=== PATIENT | male | born 1995 | race Caucasian/White ===

== ENCOUNTER 2019-05-14 17:44 | Emergency (ER) | payer BC ==
[2019-05-14 17:56] VITALS: BP 141/86
--- NOTE | 2019-05-14 18:12 | UC ---
Cardiac HPI - HPI Summary HPI Summary: Pt presents with c/o mid sternal, chest pain that began yesterday that began yesterday. Pt states pain has worsened in the last 24 hours and now is more right side of chest. Pt has family hx of grandparents with cardiac arrest at age 40 and 55. Pt is obese. Pt staes symptoms worsen with exertion. - History of Current Complaint Chief Complaint: UCChestPain Stated Complaint: CHEST PAIN Hx Obtained From: Patient Onset/Duration: Gradual Onset, Lasting Days, Still Present, Worse Since - onset Timing: Constant Initial Severity: Mild Current Severity: Moderate Pain Intensity: 5 Chest Pain Location: Mid Sternal, Right Anterior Character: Irregular, Tightness, Heaviness Aggravating Factor(s): Exertion, Position, Movement Alleviating Factor(s): Nothing Associated Signs & Symptoms: Positive: Chest Pain - Risk Factors Pulmonary Embolism Risk Factors: Negative Cardiac Risk Factors: Negative Atrial Fibrillation: Negative TAD Risk Factors: Negative AMI/ACS Risk Factors: Obesity, Family History - Allergy/Home Medications Allergies/Adverse Reactions: Allergies Allergy/AdvReac Type Severity Reaction Status Date / Time amphetamine [From Adderall] Allergy Severe Agitation Verified 05/14/19 17:59 dextroamphetamine Allergy Severe Agitation Verified 05/14/19 17:59 midazolam [From Versed] Allergy Severe Agitation Verified 05/14/19 17:59 Home Medications: Home Medications NK [No Home Medications Reported] 05/14/19 [History Confirmed 05/14/19] PMH/Surg Hx/FS Hx/Imm Hx Previously Healthy: Yes Other History Of: Negative For: HIV, Hepatitis B, Hepatitis C, Anticoagulant Therapy - Surgical History Surgical History: Yes Surgery Procedure, Year, and Place: Knee surgery 11/03/12 - Family History Known Family History: Positive: Cardiac Disease, Hypertension - Social History Occupation: Employed Full-time Lives: With Family Alcohol Use: None Substance Use Type: None Smoking Status (MU): Never Smoked Tobacco Have You Smoked in the Last Year: No - Immunization History Vaccination Up to Date: Yes Review of Systems All Other Systems Reviewed And Are Negative: Yes Constitutional: Positive: Negative Skin: Positive: Negative Eyes: Positive: Negative ENT: Positive: Negative Respiratory: Positive: Negative Cardiovascular: Positive: Chest Pain Gastrointestinal: Positive: Negative Genitourinary: Positive: Negative Motor: Positive: Negative Neurovascular: Positive: Negative Musculoskeletal: Positive: Negative Neurological: Positive: Negative Psychological: Positive: Negative, Anxious Is Patient Immunocompromised?: No Physical Exam Triage Information Reviewed: Yes Appearance: Ill-Appearing, Pain Distress, Obese Vital Signs: Initial Vital Signs Temp 98.8 F 05/14/19 17:50 Pulse 78 05/14/19 17:50 Resp 17 05/14/19 17:50 BP 141/86 05/14/19 17:50 Pulse Ox 99 05/14/19 17:50 Vital Signs Reviewed: Yes Eye Exam: Normal ENT Exam: Normal Dental Exam: Normal Neck exam: Normal Respiratory Exam: Normal Cardiovascular: Positive: Other: - regularly, irregular, Chest pain is reproducible Musculoskeletal Exam: Normal Neurological Exam: Normal Psychological Exam: Normal Skin Exam: Normal - Assessment/Plan Course Of Treatment: I discussed the ecg findings with pt and pt's mother. Mother reported the fmh of cardiac arrest in multiple family members including grandparents at age 40 and 55. I recommended pt go directly to ER. Ambulance was offered and then subsequently declined. Pt's mother stated they would go to [place] ER by private vehicle. - Differential Diagnoses - Chest Pain Differential Diagnosis/HQI/PQRI: ACS, Angina, Chest Wall - Differential Diagnoses - Hypertension Differential Diagnosis/HQI PQRI: Angina - Differential Diagnoses - Palpitations Differential Diagnosis/HQI/PQRI: AV Block - Clinical Impression Provider Diagnosis: Chest pain Discharge ED - Sign-Out/Discharge Documenting (check all that apply): Patient Departure All imaging exams completed and their final reports reviewed: No Studies - Discharge Plan Condition: Stable Disposition: HOME-RECOMMEND TO ED Patient Education Materials: Chest Pain (ED) Referrals: Kwasi Alvarenga MD [Primary Care Provider] - Additional Instructions: Please go directly to the closest emergency room. If your symptoms worsen in route to the hospital, please stop and call 911. Transfer to the ER by ambulance would be recommended. - Billing Disposition and Condition Condition: STABLE Disposition: Home-Recommend to ED
== END 2019-05-14 18:20 | disposition home health service (06) ==
LOC: UCEAST 17:44
DX: R07.89 Other chest pain (principal); Z82.49 Family history of ischemic heart disease and other diseases of the circulatory system; Z88.8 Allergy status to other drugs, medicaments and biological substances; E66.9 Obesity, unspecified
CPT/HCPCS: 99202; G0463

== ENCOUNTER 2019-05-14 18:37 | Emergency (ER) | payer BC ==
[2019-05-14 19:02] LABS: ABS Basophils 0.1 10^3/ul (0-0.2); ABS Eosinophils 0.3 10^3/ul (0-0.6); ABS Lymphocytes 2.4 10^3/ul (1.0-4.8); ABS Monocytes 0.5 10^3/ul (0-0.8); ABS Neutrophils 6.8 10^3/ul (1.5-7.7); Eosinophil % 2.6 %; Hematocrit 39 % (42-52); Hemoglobin 13.3 g/dL (14.0-18.0); Lymphocyte % 23.8 %; Mean Corpuscular HGB Conc 34 g/dL (31-36); Mean Corpuscular Hemoglobin 28 pg (27-31); Mean Corpuscular Volume 83 fL (80-94); Mean Platelet Volume 8.3 fL (7.4-10.4); Platelet Count 126 10^3/uL (150-450); Red Blood Count 4.71 10^6 /uL (4.18-5.48); Red Cell Distribution Width 14 % (10-15)
--- NOTE | 2019-05-14 19:04 | ED ---
HPI Chest Pain - HPI Summary HPI Summary: Patient complains of gradual onset of substernal chest pain starting yesterday afternoon, with some associated shortness of breath and pain with inhalation. Denies trauma, heavy lifting, fever, cough, sore throat, and/V/V abdominal pain , change in urine, change in BM. Patient had abnormal EKG at urgent care and was sent to the ED for further evaluation. Denies medical history. Negative family cardiac history. Nonsmoker. Denies recreational drug use. - History of Current Complaint Chief Complaint: EDChestPainROMI Time Seen by Provider: 05/14/19 19:00 Hx Obtained From: Patient Onset/Duration: Started Days Ago Timing: Constant, Lasting Days Initial Severity: Moderate Current Severity: Moderate Pain Intensity: 5 Pain Scale Used: 0-10 Numeric Chest Pain Location: Lower Sternal Chest Pain Radiates: No Character: Tightness Aggravating Factor(s): Nothing Alleviating Factor(s): Nothing Associated Signs and Symptoms: Positive: Chest Pain, Shortness of Breath - Allergy/Home Medications Allergies/Adverse Reactions: Allergies Allergy/AdvReac Type Severity Reaction Status Date / Time amphetamine [From Adderall] Allergy Severe Agitation Verified 05/14/19 17:59 dextroamphetamine Allergy Severe Agitation Verified 05/14/19 17:59 midazolam [From Versed] Allergy Severe Agitation Verified 05/14/19 17:59 PMH/Surg Hx/FS Hx/Imm Hx Endocrine/Hematology History: Denies: Hx Anticoagulant Therapy, Hx Diabetes, Hx Thyroid Disease Cardiovascular History: Denies: Hx Congestive Heart Failure, Hx Deep Vein Thrombosis, Hx Hypercholesterolemia, Hx Hypertension, Hx Myocardial Infarction, Hx Pacemaker/ ICD, Hx Peripheral Vascular Disease Respiratory History: Denies: Hx Asthma, Hx Chronic Obstructive Pulmonary Disease (COPD), Hx Lung Cancer, Hx Pneumonia, Hx Pulmonary Embolism GI History: Denies: Hx Gall Bladder Disease, Hx Gastrointestinal Bleed, Hx Ulcer, Hx Urosepsis History: Denies: Hx Kidney Stones, Hx Renal Disease Musculoskeletal History: Denies: Hx Arthritis, Hx Osteoporosis Sensory History: Denies: Hx Cataracts, Hx Contacts or Glasses, Hx Glaucoma, Hx Hearing Aid Opthamlomology History: Denies: Hx Cataracts, Hx Contacts or Glasses, Hx Glaucoma Neurological History: Denies: Hx Dementia, Hx Headaches, Hx Migraine, Hx Seizures, Hx Transient Ischemic Attacks (TIA) Psychiatric History: Denies: Hx Anxiety, Hx Depression, Hx Schizophrenia, Hx Bipolar Disorder - Surgical History Surgery Procedure, Year, and Place: Knee surgery 11/03/12 Hx Anesthesia Reactions: Yes - REACTED VERY AGGRESSIVELY TO VERSED Infectious Disease History: No Infectious Disease History: Denies: Hx Clostridium Difficile, Hx Hepatitis, Hx Human Immunodeficiency Virus (HIV), Hx of Known/Suspected MRSA, Hx Shingles, Hx Tuberculosis, Traveled Outside the [place] in Last 30 Days - Family History Known Family History: Positive: Cardiac Disease, Hypertension - Social History Alcohol Use: None Hx Substance Use: No Substance Use Type: Reports: None Hx Tobacco Use: No Smoking Status (MU): Never Smoked Tobacco Review of Systems Constitutional: Negative Eyes: Negative ENT: Negative Positive: Chest Pain Positive: Shortness Of Breath Gastrointestinal: Negative Genitourinary: Negative Musculoskeletal: Negative Neurological: Negative Psychological: Normal All Other Systems Reviewed And Are Negative: Yes Physical Exam - Summary Physical Exam Summary: Patient tender to palpation in lower sternal/epigastrium and lower right side rib/right upper quadrant abdomen. Lung sounds clear to auscultation bilaterally. Sinus arrhythmia. Abdominal exam otherwise unremarkable. Triage Information Reviewed: Yes Vital Signs On Initial Exam: Initial Vitals Temp Pulse Resp BP Pulse Ox 98.5 F 67 18 164/93 100 05/14/19 18:44 05/14/19 18:44 05/14/19 18:44 05/14/19 18:44 05/14/19 18:44 Vital Signs Reviewed: Yes Appearance: Positive: Well-Appearing Skin: Positive: Warm Head/Face: Positive: Normal Head/Face Inspection Eyes: Positive: Normal ENT: Positive: Normal ENT inspection Neck: Positive: Supple Respiratory/Lung Sounds: Positive: Clear to Auscultation Cardiovascular: Positive: IRR Abdomen Description: Positive: Nontender, Other: Musculoskeletal: Positive: Normal Neurological: Positive: Normal Psychiatric: Positive: Normal AVPU Assessment: Alert - [place] Coma Scale Best Eye Response: 4 - Spontaneous Best Motor Response: 6 - Obeys Commands Best Verbal Response: 5 - Oriented Coma Scale Total: 15 Procedures - Sedation Patient Received Moderate/Deep Sedation with Procedure: No Diagnostics - Vital Signs Vital Signs Temp Pulse Resp BP Pulse Ox 05/14/19 18:44 98.5 F 67 18 164/93 100 - Laboratory Lab Results: Lab Results 05/14/19 Range/Units 18:56 WBC 10.0 (3.5-10.8) 10^3/uL RBC 4.71 (4.18-5.48) 10^6 /uL Hgb 13.3 L (14.0-18.0) g/dL Hct 39 L (42-52) % MCV 83 (80-94) fL MCH 28 (27-31) pg MCHC 34 (31-36) g/dL RDW 14 (10-15) % Plt Count 126 L (150-450) 10^3/uL MPV 8.3 (7.4-10.4) fL Neut % (Auto) 68.2 % Lymph % (Auto) 23.8 % [place] % (Auto) 4.7 % Eos % (Auto) 2.6 % Baso % (Auto) 0.7 % Absolute Neuts (auto) 6.8 (1.5-7.7) 10^3/ul Absolute Lymphs (auto) 2.4 (1.0-4.8) 10^3/ul Absolute Monos (auto) 0.5 (0-0.8) 10^3/ul Absolute Eos (auto) 0.3 (0-0.6) 10^3/ul Absolute Basos (auto) 0.1 (0-0.2) 10^3/ul Absolute Nucleated RBC 0.0 10^3/ul Nucleated RBC % 0.0 Result Diagrams: 05/14/19 18:56 05/14/19 18:56 Lab Statement: Any lab studies that have been ordered have been reviewed, and results considered in the medical decision making process. Chest Pain Course/Dx - Course Course Of Treatment: Patient complains of gradual onset of substernal chest pain starting yesterday afternoon, with some associated shortness of breath and pain with inhalation. Denies trauma, heavy lifting, fever, cough, sore throat, and/V/V abdominal pain, change in urine, change in BM. Patient had abnormal EKG at urgent care and was sent to the ED for further evaluation. Denies medical history. Negative family cardiac history. Nonsmoker. Denies recreational drug use. Vital signs within normal limits. Labs unremarkable. Serial troponins negative. Chest x-ray unremarkable. EKG sinus arrhythmia, heart rate 78, no prior EKG on file. Ultrasound gallbladder negative. Lipase negative. - Diagnoses Provider Diagnoses: Atypical chest pain Discharge ED - Sign-Out/Discharge Documenting (check all that apply): Patient Departure - Discharge Plan Condition: Stable Disposition: HOME Patient Education Materials: Chest Pain (ED) Forms: *Work Release Referrals: Renetta Lerma MD [Medical Doctor] - Additional Instructions: Take ibuprofen 600 mg every 6 hours for 2 days as needed for chest pain. Follow -up with primary care. Return to the ED for any new or worsening symptoms. - Billing Disposition and Condition Condition: STABLE Disposition: Home - Attestation Statements Provider Attestation: I was available for consult. This patient was seen by the [facility]. The patient was not presented to, seen by, or examined by me. Westley Ceballos MD
[2019-05-14 19:08] LABS: INR 1.03 (0.82-1.09)
[2019-05-14 19:22] LABS: ALT 18 U/L (7-52); AST 12 U/L (13-39); Albumin 4.2 g/dL (3.2-5.2); Albumin/Globulin Ratio 1.5 (1-3); Alkaline Phosphatase 63 U/L (34-104); Anion Gap 6 mmol/L (2-11); BUN/Creatinine Ratio 20.3 (8-20); Blood Urea Nitrogen 16 mg/dL (6-24); CO2 Carbon Dioxide 28 mmol/L (22-32); Calcium 9.6 mg/dL (8.6-10.3); Chloride 106 mmol/L (101-111); EGFR African American 148.4 (>60); EGFR Non-African American 122.6 (>60); Globulin 2.8 g/dL (2-4); Glucose 86 mg/dL (70-100); Potassium 3.7 mmol/L (3.5-5.0); Sodium 140 mmol/L (135-145)
[2019-05-14] MEDS ORDERED: Ibuprofen TAB* 600 MG PO ONE (22:14)
[2019-05-14 22:32] VITALS: BP 144/87
== END 2019-05-14 22:31 | disposition home or self-care (01) ==
LOC: ED 18:37
DX: R07.89 Other chest pain (principal); Z88.8 Allergy status to other drugs, medicaments and biological substances
CPT/HCPCS: 36415; 71046; 76705; 80053; 83690; 84484; 85025; 85610; 93005; 99282

== ENCOUNTER 2019-07-17 17:27 | Emergency (ER) | payer BC ==
--- NOTE | 2019-07-17 18:07 | UC ---
Knee Pain HPI - HPI Summary HPI Summary: 23 yo male presents, accompanied by mother, with LEFT knee pain. He tells me that yesterday he fell down 4-5 steps going downwards down the stairs and twisted his left knee. Since that time has had pain with weight bearing. No instability or weakness. Has been resting, icing, and elevating with little change. - History of Current Complaint Stated Complaint: KNEE INJURY Time Seen by Provider: 07/17/19 18:05 Hx Obtained From: Patient Onset/Duration: Sudden Onset Severity Initially: Mild Severity Currently: Mild Pain Intensity: 4 Pain Scale Used: 0-10 Numeric - Allergies/Home Medications Allergies/Adverse Reactions: Allergies Allergy/AdvReac Type Severity Reaction Status Date / Time amphetamine [From Adderall] Allergy Severe Agitation Verified 07/17/19 18:08 dextroamphetamine Allergy Severe Agitation Verified 07/17/19 18:08 midazolam [From Versed] Allergy Severe Agitation Verified 07/17/19 18:08 Home Medications: Home Medications Ibuprofen TAB* [Motrin TAB* 800 MG] 800 mg PO Q6HR 07/17/19 [History Confirmed 07/17/19] PMH/Surg Hx/FS Hx/Imm Hx - Additional Past Medical History Additional PMH: ADHD Acne Other History Of: Negative For: HIV, Hepatitis B, Hepatitis C, Anticoagulant Therapy - Surgical History Surgical History: Yes Surgery Procedure, Year, and Place: Knee surgery 11/03/12 - Family History Known Family History: Positive: Cardiac Disease, Hypertension - Social History Lives: With Family Alcohol Use: None Substance Use Type: None Smoking Status (MU): Never Smoked Tobacco Have You Smoked in the Last Year: No - Immunization History Vaccination Up to Date: Yes Review of Systems All Other Systems Reviewed And Are Negative: No Constitutional: Positive: Negative Skin: Positive: Negative Respiratory: Positive: Negative Cardiovascular: Positive: Negative Neurovascular: Positive: Negative Musculoskeletal: Positive: Other: - Knee pain Neurological: Positive: Negative Psychological: Positive: Negative Physical Exam - Summary Physical Exam Summary: GENERAL: NAD. WDWN. No pain distress. SKIN: No rashes, sores, lesions, or open wounds. CHEST: No accessory muscle use. Breathing comfortably and in no distress. CV: Pulses intact popliteal, PT, and DP. Cap refill <2seconds MSK: LEFT KNEE: FROM. NTTP. Strength 5/5. No edema or obvious bony deformities. No patella apprehension. Negative [place], A/P drawer, [place], and varus/ valgus stress. NEURO: Alert. Sensations intact and symmetric B/L LEs PSYCH: Age appropriate behavior. Triage Information Reviewed: Yes Vital Signs: Vital Signs: Temp Pulse Resp BP Pulse Ox 98.5 F 56 16 99 07/17/19 18:03 07/17/19 18:03 07/17/19 18:03 07/17/19 18:03 Vital Signs Reviewed: Yes Diagnostics - Radiology Knee XR Radiology Interpretation Completed By: ED Physician Summary of Radiographic Findings: NAD Knee Pain Course/Dx - Course Course Of Treatment: XR wet read negative. Suspect sprain/strain of left knee. Advised to continue RICE therapy and tylenol /ibuprofen as directed for discomfort. If symptoms do not improve to be rechecked by Ortho in 1 week - Differential Dx/Diagnosis Provider Diagnosis: Left knee pain Discharge ED - Sign-Out/Discharge Documenting (check all that apply): Patient Departure All imaging exams completed and their final reports reviewed: No - Discharge Plan Condition: Stable Disposition: HOME Patient Education Materials: Knee Pain (ED) Forms: *Work Release Referrals: No Primary Care Phys,NOPCP [Primary Care Provider] - Chiquis Begum MD [Medical Doctor] - If Needed Additional Instructions: If you develop a fever, shortness of breath, chest pain, new or worsening symptoms - please call your PCP or go to the ED immediately. The X-ray of your knee is normal this evening. I suspect you have a sprain/strain of your knee. Please rest, ice, and elevate your knee. If your symptoms do not improve within 1 week - please call Orthopedics at the number below to schedule an appointment for further evaluation - Billing Disposition and Condition Condition: STABLE Disposition: Home - Attestation Statements Provider Attestation: Per institutional requirements, I have reviewed the chart, however, I was not consulted specifically or made aware of this patient by the midlevel provider. I did not personally evaluate, interact with , or disposition this patient.
--- NOTE | 2019-07-18 09:55 | UC ---
- Progress Note Progress Note: Reviewed results of Dr. Rod's reading of knee xray, "Normal knee." No change from wet read, with no change in management based on the report. Course/Dx - Diagnoses Provider Diagnoses: Left knee pain Discharge ED - Sign-Out/Discharge Documenting (check all that apply): Post-Discharge Follow Up All imaging exams completed and their final reports reviewed: Yes - Discharge Plan Condition: Stable Disposition: HOME Patient Education Materials: Knee Pain (ED) Forms: *Work Release Referrals: Chiquis Begum MD [Medical Doctor] - If Needed No Primary Care Phys,NOPCP [Primary Care Provider] - Additional Instructions: If you develop a fever, shortness of breath, chest pain, new or worsening symptoms - please call your PCP or go to the ED immediately. The X-ray of your knee is normal this evening. I suspect you have a sprain/strain of your knee. Please rest, ice, and elevate your knee. If your symptoms do not improve within 1 week - please call Orthopedics at the number below to schedule an appointment for further evaluation - Billing Disposition and Condition Condition: STABLE Disposition: Home
== END 2019-07-17 19:00 | disposition home or self-care (01) ==
LOC: UCEAST 17:27
DX: M25.662 Stiffness of left knee, not elsewhere classified (principal); F90.9 Attention-deficit hyperactivity disorder, unspecified type; Z88.8 Allergy status to other drugs, medicaments and biological substances
CPT/HCPCS: 99211; G0463